=== PATIENT | male | born 1950 | race Caucasian/White ===

== ENCOUNTER → 2022-01-29 | Day surgery (SDC) | payer OTHER ==
[~2022-01-29] VITALS: Ht 190.5 cm; Wt 73.5 kg
[~2022-01-29] MED LIST: 3IN1 COMMODE; ACETAMINOPHEN325 MG PO; ELIQUIS5 MG PO; FLOMAX0.4 MG PO; LIPITOR20 MG PO; MIRALAX 238GM238 GM PO
[2022-01-29 08:59] LABS: HCT 43.5 % (42.0-52.0); HGB 15.1 g/dl (13.2-18.0); MCH 32.7 pg (25.0-31.0); MCHC 34.7 g/dL (32.0-36.0); MCV 94.2 fL (78.0-100.0); MPV 9.1 fL (6.0-9.5); RBC 4.62 M/uL (4.70-6.00); RDW 13.2 % (11.5-14.0); WBC 9.1 K/uL (4.0-10.5)
[2022-01-29 09:26] LABS: ALBUMIN 3.8 g/dL (3.4-5.0); BUN/CREAT RATIO (CALC) 12.1 RATIO; CREATININE 0.99 mg/dL (0.67-1.17); POTASSIUM 3.4 mmol/L (3.5-5.1); TOTAL PROTEIN 6.8 g/dL (6.4-8.2)
== END | disposition home or self-care (01) ==
LOC: FAS 08:14
PROVIDERS: Surgery
DX: K60.4 Rectal fistula (principal); K59.00 Constipation, unspecified; K57.30 Diverticulosis of large intestine without perforation or abscess without bleeding; K56.609 Unspecified intestinal obstruction, unspecified as to partial versus complete obstruction; I10 Essential (primary) hypertension; E78.5 Hyperlipidemia, unspecified; J44.9 Chronic obstructive pulmonary disease, unspecified; I25.2 Old myocardial infarction; F17.200 Nicotine dependence, unspecified, uncomplicated; Z95.5 Presence of coronary angioplasty implant and graft; Z79.01 Long term (current) use of anticoagulants; Z79.899 Other long term (current) drug therapy
CPT/HCPCS: 36415; 80053; 93005; J1610; J2250; J2704; J7120